=== PATIENT | female | born 1975 | race Caucasian/White ===

== ENCOUNTER 2024-02-11 18:08 | Outpatient (RCR) | payer OTHER, SELFPAY | END 2024-02-11 23:59 | disposition home or self-care (01) | LOC: RPT 18:08 | PROVIDERS: ATTENDING PHYSICIAN Specialist; FAMILY PHYSICIAN Internal Medicine | DX: M54.16 Radiculopathy, lumbar region (principal); Z73.6 Limitation of activities due to disability | CPT/HCPCS: 97110; 97140; 97162 ==

== ENCOUNTER 2024-03-15 15:49 | Outpatient (RCR) | payer OTHER, SELFPAY | END 2024-03-15 23:59 | disposition home or self-care (01) | LOC: RPT 15:49 | PROVIDERS: ATTENDING PHYSICIAN Specialist; FAMILY PHYSICIAN Internal Medicine | DX: M54.16 Radiculopathy, lumbar region (principal); Z73.6 Limitation of activities due to disability | CPT/HCPCS: 97110; 97140 ==

== ENCOUNTER 2024-03-29 12:08 | Outpatient (RCR) | payer OTHER, SELFPAY | END 2024-03-29 23:59 | disposition home or self-care (01) | LOC: RPT 12:08 | PROVIDERS: ATTENDING PHYSICIAN Specialist; FAMILY PHYSICIAN Internal Medicine | DX: M54.16 Radiculopathy, lumbar region (principal); Z73.6 Limitation of activities due to disability | CPT/HCPCS: 97110; 97140 ==

== ENCOUNTER 2024-05-11 14:46 | Outpatient (RCR) | payer OTHER, SELFPAY | END 2024-05-11 23:59 | disposition home or self-care (01) | LOC: RPT 14:46 | PROVIDERS: ATTENDING PHYSICIAN Obstetrics & Gynecology; FAMILY PHYSICIAN Internal Medicine | DX: N39.3 Stress incontinence (female) (male) (principal); R10.30 Lower abdominal pain, unspecified; Z73.6 Limitation of activities due to disability; M62.81 Muscle weakness (generalized); R27.8 Other lack of coordination; M54.30 Sciatica, unspecified side; M79.605 Pain in left leg; R15.2 Fecal urgency | CPT/HCPCS: 97140; 97162; 97530 ==

== ENCOUNTER 2024-06-14 14:12 | Outpatient (RCR) | payer OTHER, SELFPAY | END 2024-06-14 23:59 | disposition home or self-care (01) | LOC: RPT 14:12 | PROVIDERS: ATTENDING PHYSICIAN Obstetrics & Gynecology; FAMILY PHYSICIAN Internal Medicine | DX: N39.3 Stress incontinence (female) (male) (principal); R10.30 Lower abdominal pain, unspecified; Z73.6 Limitation of activities due to disability; M62.81 Muscle weakness (generalized); R27.8 Other lack of coordination; M54.30 Sciatica, unspecified side; M79.605 Pain in left leg; R15.2 Fecal urgency | CPT/HCPCS: 97140; 97530 ==

== ENCOUNTER → 2024-07-15 12:51 | Outpatient (REF) | payer OTHER, SELFPAY | LOC: HWWDC 12:51 | PROVIDERS: ATTENDING PHYSICIAN Obstetrics & Gynecology; FAMILY PHYSICIAN Internal Medicine | DX: Z12.31 Encounter for screening mammogram for malignant neoplasm of breast (principal) | CPT/HCPCS: 77063; 77067 ==

== ENCOUNTER 2024-07-19 12:07 | Outpatient (RCR) | payer OTHER, SELFPAY | END 2024-07-19 23:59 | disposition home or self-care (01) | LOC: RPT 12:07 | PROVIDERS: ATTENDING PHYSICIAN Obstetrics & Gynecology; FAMILY PHYSICIAN Internal Medicine | DX: N39.3 Stress incontinence (female) (male) (principal); R10.30 Lower abdominal pain, unspecified; Z73.6 Limitation of activities due to disability; M62.81 Muscle weakness (generalized); R27.8 Other lack of coordination; M54.30 Sciatica, unspecified side; M79.605 Pain in left leg; R15.2 Fecal urgency | CPT/HCPCS: 97110; 97140; 97530 ==

== ENCOUNTER 2024-08-23 16:12 | Outpatient (RCR) | payer OTHER, SELFPAY | END 2024-08-23 23:59 | disposition home or self-care (01) | LOC: RPT 16:12 | PROVIDERS: ATTENDING PHYSICIAN Obstetrics & Gynecology; FAMILY PHYSICIAN Internal Medicine | DX: N39.3 Stress incontinence (female) (male) (principal); R10.30 Lower abdominal pain, unspecified; Z73.6 Limitation of activities due to disability; M62.81 Muscle weakness (generalized); R27.8 Other lack of coordination; M54.30 Sciatica, unspecified side; M79.605 Pain in left leg; R15.2 Fecal urgency | CPT/HCPCS: 97110; 97140; 97530 ==

== ENCOUNTER 2024-09-20 15:56 | Outpatient (RCR) | payer OTHER, SELFPAY | END 2024-09-20 23:59 | disposition home or self-care (01) | LOC: RPT 15:56 | PROVIDERS: ATTENDING PHYSICIAN Obstetrics & Gynecology; FAMILY PHYSICIAN Internal Medicine | DX: N39.3 Stress incontinence (female) (male) (principal); R10.30 Lower abdominal pain, unspecified; Z73.6 Limitation of activities due to disability; M62.81 Muscle weakness (generalized); R27.8 Other lack of coordination; M54.30 Sciatica, unspecified side; M79.605 Pain in left leg; R15.2 Fecal urgency | CPT/HCPCS: 97140; 97530 ==

== ENCOUNTER 2024-11-08 15:55 | Outpatient (RCR) | payer OTHER, SELFPAY | END 2024-11-08 23:59 | disposition home or self-care (01) | LOC: RPT 15:55 | PROVIDERS: ATTENDING PHYSICIAN Obstetrics & Gynecology; FAMILY PHYSICIAN Internal Medicine | DX: N39.3 Stress incontinence (female) (male) (principal); R10.30 Lower abdominal pain, unspecified; R27.8 Other lack of coordination; M62.81 Muscle weakness (generalized); Z73.6 Limitation of activities due to disability; M54.30 Sciatica, unspecified side; M79.605 Pain in left leg; R15.2 Fecal urgency | CPT/HCPCS: 97140; 97530 ==

== ENCOUNTER 2024-12-13 15:01 | Outpatient (RCR) | payer OTHER, SELFPAY | END 2024-12-13 23:59 | disposition home or self-care (01) | LOC: RPT 15:01 | PROVIDERS: ATTENDING PHYSICIAN Obstetrics & Gynecology; FAMILY PHYSICIAN Internal Medicine | DX: N39.3 Stress incontinence (female) (male) (principal); R10.30 Lower abdominal pain, unspecified; M62.81 Muscle weakness (generalized); R27.8 Other lack of coordination; Z73.6 Limitation of activities due to disability; M54.30 Sciatica, unspecified side; M79.605 Pain in left leg; R15.2 Fecal urgency | CPT/HCPCS: 97140; 97530 ==

== ENCOUNTER 2024-12-27 16:52 | Outpatient (RCR) | payer OTHER, SELFPAY | END 2024-12-28 06:41 | disposition home or self-care (01) | LOC: RPT 16:52 | PROVIDERS: ATTENDING PHYSICIAN Obstetrics & Gynecology; FAMILY PHYSICIAN Internal Medicine | DX: N39.3 Stress incontinence (female) (male) (principal); R10.30 Lower abdominal pain, unspecified; M62.81 Muscle weakness (generalized); R27.8 Other lack of coordination; Z73.6 Limitation of activities due to disability; M54.30 Sciatica, unspecified side; M79.605 Pain in left leg; R15.2 Fecal urgency | CPT/HCPCS: 97140; 97530 ==

== ENCOUNTER → 2025-08-04 06:53 | Outpatient (REF) | payer OTHER, SELFPAY | LOC: HWWDC 06:53 | PROVIDERS: ATTENDING PHYSICIAN Student in an Organized Health Care Education/Training Program; FAMILY PHYSICIAN Internal Medicine | DX: Z12.31 Encounter for screening mammogram for malignant neoplasm of breast (principal) | CPT/HCPCS: 77063; 77067 ==

== ENCOUNTER → 2025-08-16 10:24 | Outpatient (REF) | payer OTHER, SELFPAY | LOC: WDC 10:24 | PROVIDERS: ATTENDING PHYSICIAN Student in an Organized Health Care Education/Training Program; FAMILY PHYSICIAN Internal Medicine | DX: R92.8 Other abnormal and inconclusive findings on diagnostic imaging of breast (principal) | CPT/HCPCS: 77065 ==

== ENCOUNTER → 2025-08-19 06:37 | Outpatient (REF) | payer OTHER, SELFPAY ==
--- NOTE | 2025-08-19 10:39 | OID.BR.INTR ---
[facility]igator - Initial
- -
Date of Contact: 08/19/25
Met with patient. Patient given written information on navigator service available at [facility]. Will follow up as needed per protocol.
== END ==
LOC: WDC 06:37
PROVIDERS: ATTENDING PHYSICIAN Student in an Organized Health Care Education/Training Program
DX: R92.1 Mammographic calcification found on diagnostic imaging of breast (principal)
CPT/HCPCS: 19081; 76098; 88305; A4648

== ENCOUNTER → 2025-11-03 16:51 | Outpatient (REF) | payer OTHER, SELFPAY | LOC: RAD 16:51 | PROVIDERS: ATTENDING PHYSICIAN Podiatrist Foot & Ankle Surgery; FAMILY PHYSICIAN Internal Medicine | DX: S90.112A Contusion of left great toe without damage to nail, initial encounter (principal); Z91.81 History of falling | CPT/HCPCS: 73630 ==